=== PATIENT | female | born 2000 | race Caucasian/White ===

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

== ENCOUNTER → 2020-04-19 16:28 | Outpatient (CLI) | payer MEDICAID, SELFPAY ==
[2020-04-19 14:24] VITALS: BMI 28.1
[2020-04-19 17:06] LABS: Amphetamine Urine VISTA NEGATIVE (<1000 ng/mL); Barbiturate Urine VISTA NEGATIVE (< 200 ng/mL); Benzodiazepine Urine VISTA NEGATIVE (< 200 ng/mL); Cocaine Urine VISTA NEGATIVE (< 300 ng/mL); Ecstacy Urine VISTA NEGATIVE (< 500 ng/mL); Methadone Urine VISTA NEGATIVE (< 300 ng/mL); PCP Urine VISTA NEGATIVE (< 25 ng/mL); THC Urine VISTA NEGATIVE (< 50 ng/mL); Vista UDS pH Range 6
[2020-04-19 19:47] LABS: Chlamydia Trachomatis by PCR Negative (Negative); Neisserai gonorrhoeae by PCR Negative (Negative); Probe Check PASS; Sample Adequacy Control PASS; Specimen Processing Control PASS
== END ==
PROVIDERS: PCP Family Medicine; Referring Provider Obstetrics & Gynecology; Visit Provider Obstetrics & Gynecology
DX: Z34.90 Encounter for supervision of normal pregnancy, unspecified, unspecified trimester (principal)
CPT/HCPCS: 80307; 87086; 87088; 87491; 87591

== ENCOUNTER → 2020-04-21 11:47 | Outpatient (CLI) | payer MEDICAID, SELFPAY ==
[2020-04-19 14:24] VITALS: BMI 28.1
[2020-04-21 12:14] LABS: Absolute Lymphocyte Count 1.63 X10^3/uL (0.83-4.51); Absolute Neutrophil Count 4.2 X10^3/uL (2.0-7.7); Basophil# 0.03 X10^3/uL; Basophil% 0.4 % (0-1); Eosinophil# 0.41 X10^3/uL; Eosinophils% 6.1 % (0-5); Hematocrit 38.6 % (37-47); Hemoglobin 13.3 g/dL (12.0-15.0); Lymphocyte # 1.63 X10^3/ul (4.0); Lymphocyte % 24.1 % (19-41); Mean Corp Hgb Conc 34.5 g/dL (32-36); Mean Corpuscular Hgb 29.8 pg (27.0-32.0); Mean Corpuscular Volume 86.5 fL (81-99); Mean Platelet Vol. 9.7 fl (6.2-12.0); Monocyte# 0.47 X10^3/uL; NRBC Flagged by Analyzer 0 % (0-5); Neutrophil % 62.1 % (47-70); Platelet Count 252 K/mm3 (150-450); RBC Distribution Width CV 12.5 % (11.6-14.6); RBC Distribution Width SD 38.7 fl (35.1-43.9); Red Blood Count 4.46 M/mm3 (4.2-5.4); White Blood Count 6.8 K/mm3 (4.4-11.0)
[2020-04-21 13:02] LABS: NATERA MAILED SPECIMEN
[2020-04-21 13:11] LABS: HIV - WCH Non-Reactive (Nonreactive); Hepatitis B Surface Antigen Non-Reactive (Nonreactive); Hepatitis C Antibody Non-Reactive (Nonreactive); Rubella IgG 132.8 IU/mL
[2020-04-26 02:01] LABS: Rapid Plasmin Reagin (RPR) NONREACTIVE (NONREACTIVE)
== END ==
PROVIDERS: PCP Family Medicine; Referring Provider Obstetrics & Gynecology; Visit Provider Obstetrics & Gynecology
DX: Z34.90 Encounter for supervision of normal pregnancy, unspecified, unspecified trimester (principal)
CPT/HCPCS: 36415; 85025; 86592; 86703; 86762; 86803; 86850; 86900; 86901; 87340

== ENCOUNTER → 2020-06-11 | Outpatient (CLI) | payer MEDICAID, SELFPAY ==
[2020-06-11 14:17] VITALS: BMI 28.1
== END | disposition home or self-care (01) ==
LOC: LABSPEC 17:19
PROVIDERS: PCP Family Medicine; Referring Provider Obstetrics & Gynecology; Visit Provider Obstetrics & Gynecology
DX: R82.71 Bacteriuria (principal)
CPT/HCPCS: 87086; 87088

== ENCOUNTER → 2020-08-16 09:24 | Outpatient (CLI) | payer MEDICAID, SELFPAY ==
[2020-07-19 15:33] VITALS: BMI 29.4
[2020-08-16 10:54] LABS: Absolute Neutrophil Count 7.5 X10^3/uL (2.0-7.7); Basophil# 0.05 X10^3/uL; Basophil% 0.5 % (0-1); Eosinophil# 0.44 X10^3/uL; Eosinophils% 4.2 % (0-5); Hematocrit 36.6 % (37-47); Hemoglobin 11.9 g/dL (12.0-15.0); Lymphocyte % 16.3 % (19-41); Mean Corp Hgb Conc 32.5 g/dL (32-36); Mean Corpuscular Hgb 29.5 pg (27.0-32.0); Mean Corpuscular Volume 90.8 fL (81-99); Mean Platelet Vol. 10.2 fl (6.2-12.0); Monocyte# 0.73 X10^3/uL; NRBC Flagged by Analyzer 0 % (0-5); Neutrophil % 71.6 % (47-70); Platelet Count 271 K/mm3 (150-450); RBC Distribution Width CV 12.4 % (11.6-14.6); RBC Distribution Width SD 40.7 fl (35.1-43.9); Red Blood Count 4.03 M/mm3 (4.2-5.4); White Blood Count 10.5 K/mm3 (4.4-11.0)
[2020-08-16 11:30] LABS: Glucose Challenge Gest 1H 50g 100 mg/dL (70-140)
== END ==
PROVIDERS: PCP Family Medicine; Referring Provider Obstetrics & Gynecology; Visit Provider Obstetrics & Gynecology
DX: Z34.90 Encounter for supervision of normal pregnancy, unspecified, unspecified trimester (principal); Z13.1 Encounter for screening for diabetes mellitus
CPT/HCPCS: 36415; 82950; 85025

== ENCOUNTER → 2020-09-13 11:28 | Outpatient (CLI) | payer MEDICAID, SELFPAY ==
[2020-07-19 15:33] VITALS: BMI 29.4
[2020-08-30 10:41] VITALS: BMI 30.4
--- NOTE | 2020-09-13 11:29 | US_ITS ---
STUDY: SECOND AND THIRD TRIMESTER OBSTETRICAL ULTRASOUND REASON FOR EXAM: Female, 20 years old ANATOMY LMP: 02/11/2020. TECHNIQUE: Transabdominal TECHNICAL QUALITY: Adequate. PRIOR ULTRASOUND: None. FINDINGS: There is a single intrauterine fetus. The fetus is in a cephalic presentation. There is demonstrated cardiac activity with a heart rate of 168 bpm. There is a normal amniotic fluid volume. The largest amniotic fluid pocket measures 7.1 cm. The amniotic fluid index (SHUN) is 12.6 cm. The placenta is fundal and posterior. Not low-lying. There are Grade 0 placental changes. The cervix measures 3.1 cm in length. The adnexal regions are not visualized. BIOMETRY: BPD: 7.54 cm: 30 weeks, 1 days HC: 28.09 cm: 30 weeks, 5 days AC: 27.38 cm: 31 weeks, 3 days FL: 5.76 on: 30 weeks, 1 days CI: 77% FL/BPD: 76% FL/HC: FL/AC: 21% HC/AC: 1.03 age by current US: 30 weeks, 3 days. JETT by current US: 11/19/2020. Estimated weight: 1672 grams, +/- 251 grams, 46 %. Age by LMP: 30 weeks, 5 days. JETT by LMP: 11/17/2020. ANATOMY: Gender: Female Cranium: The lateral ventricles are non-visualized. The choroid plexus is non-visualized. Normal cerebellum. Normal cisterna magna. Normal face, nose and lips. Chest: Normal 4-chamber heart. Abdomen/Pelvis: Normal diaphragm. Normal stomach. Normal abdominal wall. Normal cord insertion. Normal 3 vessel cord. Normal kidneys. Normal bladder. Spine: Normal cervical spine. Normal thoracic spine. Normal lumbar spine. Normal sacrum. Extremities: Normal bilateral upper extremities. Normal bilateral lower extremities. US/OB Anatomy Scan IMPRESSION: Single live intrauterine gestation with a mean gestational age of 30 weeks and 3 days. Limited visualization of the lateral ventricles and choroid plexus. Electronically Signed: Suhas Quick, at 15:15 EST , Service support ,
== END ==
PROVIDERS: PCP Family Medicine; Referring Provider Obstetrics & Gynecology; Visit Provider Obstetrics & Gynecology
DX: Z34.90 Encounter for supervision of normal pregnancy, unspecified, unspecified trimester (principal)
CPT/HCPCS: 76805

== ENCOUNTER → 2020-10-22 | Outpatient (CLI) | payer MEDICAID, SELFPAY ==
[2020-10-22 09:16] VITALS: BMI 31.7
== END | disposition home or self-care (01) ==
LOC: LABSPEC 14:38
PROVIDERS: PCP Family Medicine; Referring Provider Obstetrics & Gynecology; Visit Provider Obstetrics & Gynecology
DX: Z34.90 Encounter for supervision of normal pregnancy, unspecified, unspecified trimester (principal)
CPT/HCPCS: 87081

== ENCOUNTER 2020-11-12 05:05 | Inpatient (IN) | payer MEDICAID, SELFPAY ==
[2020-07-19 15:33] VITALS: BMI 29.4
[2020-11-05 13:33] VITALS: BMI 32.1
[2020-11-12] VITALS (17 sets, daily range): BP systolic 101–123; BP diastolic 41–78; PULSE 58–96; RESP 15–20; TEMP 36.1–36.8; O2SAT 96–100; BMI 32.5
[2020-11-12] MEDS: Lactated Ringers 1,000 ML 999 ML IV (05:55)
[2020-11-12 06:07] LABS: Absolute Lymphocyte Count 2.14 X10^3/uL (0.83-4.51); Absolute Neutrophil Count 6.7 X10^3/uL (2.0-7.7); Basophil# 0.06 X10^3/uL; Basophil% 0.6 % (0-1); Eosinophil# 0.47 X10^3/uL; Eosinophils% 4.6 % (0-5); Hematocrit 35.1 % (37-47); Hemoglobin 11.3 g/dL (12.0-15.0); Lymphocyte # 2.14 X10^3/ul (4.0); Lymphocyte % 20.8 % (19-41); Mean Corp Hgb Conc 32.2 g/dL (32-36); Mean Corpuscular Hgb 25.5 pg (27.0-32.0); Mean Corpuscular Volume 79.2 fL (81-99); Mean Platelet Vol. 10.5 fl (6.2-12.0); Monocyte# 0.88 X10^3/uL; Monocyte% 8.6 % (0-10); NRBC Flagged by Analyzer 0 % (0-5); Neutrophil # 6.66 X10^3/uL (2.7-7.7); Neutrophil % 64.6 % (47-70); Platelet Count 251 K/mm3 (150-450); RBC Distribution Width CV 12.9 % (11.6-14.6); RBC Distribution Width SD 36.9 fl (35.1-43.9); Red Blood Count 4.43 M/mm3 (4.2-5.4); White Blood Count 10.3 K/mm3 (4.4-11.0)
[2020-11-12] MEDS: Acetaminophen 500 MG Tablet 1000 MG PO ×3 (06:48→18:38)
[2020-11-12] MEDS: Sodium Citrate/Citric Acid 30 ML UDC PO (06:48)
[2020-11-12] MEDS: Lactated Ringers 1,000 ML 150 ML IV (06:54)
[2020-11-12] MEDS: Cefazolin 2 GM in 0.9% Normal Saline 100 ML IV (07:27)
--- NOTE | 2020-11-12 07:31 | PCM.HPOB.BLA ---
- Problem List (1) 35 weeks gestation of Status: Acute Comment: Pt refused COVID test (2) Asymptomatic bacteriuria Status: Acute Comment: tx w/ Macrobid repeat urine culture neg (3) General counseling and advice for contraceptive management Status: Acute Comment: IUD 6 wk pp (4) History of delivery Status: Acute Comment: prev due to vasa previa. Discussed RCD vs TOLAC - wants repeat CS:GP 11/12/20; NL growth 09/13 (5) History of tetanus, diphtheria, and acellular pertussis booster vaccination (Tdap) Status: Acute Comment: 08/30/20 (6) Status: Acute Qualifiers: Comment: genetic low risk, carrier negative, and ntd screening declined. nl anatomy (7) Short interval between pregnancies affecting , antepartum Status: Acute Comment: 8 months (8) Supervision of normal Status: Acute Qualifiers: Comment: PRR JETT 11/17/20 [place]ee [place] ([place]) History and Physical Date of Admission: 11/12/20 Intake Vital Signs 11/05/20 Height 5 ft 3 in 11/05/20 Weight: 181 lb 8 oz 11/05/20 BP 136/78 H 08/16/20 BMI 30.3 Intake Visit Reasons: 38WK OB Mechanical Sound Technician Required: No Is patient in pain?: No Allergies azithromycin [From Zithromax] Allergy (Severe, Verified 11/05/20 13:33) Anaphylaxis Medications sertraline 50 mg tablet 50 mg PO DAILY #30 tab 09/13/20 [Rx Confirmed 11/05/20] Last Menstral Period: 02/11/20 Zika: Zika virus screening: Negative : No PFSH PFSH Surgical History delivery delivered (Acute) H/O adenoidectomy (Acute) History of placement of ear tubes (Acute) Family History Grandfather Leukemia Aunt Breast cancer Social History (Updated 11/05/20 @ 14:[address] Lissette Alves MD) household members: significant other, children number of children: 1 current occupational status: unemployed history of recent travel: No sexually active: Yes Smoking Status: Never smoker alcohol intake: never substance use type: does not use caffeine: Yes Type: carbonated beverages what type of physical activity do you participate in: none seatbelt use: always do you feel safe at home: Yes additional social history: Epifanio Santaan Pregancy History 1 Elective abortions Hx Para 1 Spontaneous abortions Hx # Term Pregnancies Ectopic pregnancies Hx # Pregnancies Multiple births # of living children Past Pregnancies Del. Date Name GA/Weeks Outcome Route Bth Weight Infant Gen Labor Lgth Anesthesia Del Locatn Provider FOB 06/18/19 Tomasa 34 live - 6lbs 3oz Male spinal [facility] Delivery Date: 06/18/19 vasa previa Zach,Meena HPI 38WK OB : Details: MEMO MASON is a 20 year old who presents for routine OB visit. OB Visit JETT Calculator Estimated Delivery Date Method Current WG Current Estimate 11/17/20 LMP (Certain) 38w 2d Other Estimates 11/16/20 Ultrasound #1 38w 3d Expected Delivery Route/Plan RCS with GP patient counseled regarding risks/benefits of trial of labor versus repeat . ACOG/uptodate education given to patient. 79 % likelihood of success per calculator Labor Preferences- CB/BF classes: no labor support person: Max labor intervention preferences: c section : yes PP control planned: IUD Specific Issue/Plans flu vaccine: given tdap vaccine: given rhogam: na LARC form signed: yes movement and labor precautions reviewed. Problem list reviewed and updated with the most current plan of care details and appropriate orders placed. Relevant counseling for the gestational age provided. Continue routine care and follow up unless otherwise noted in visit notes/problem list details Initial Weight: 159 lb Date EGA Weight BP Urine Prot Glucose FHR FuHt Pres Dilation Effaced St Visit Note 04/19/20 9w 5d 159 lb (+0 oz) 128/72 165 SM- CRL- SM- CRL- 2.9cm cons with lmp 05/18/20 13w 6d 157 lb (-2 lb) 112/60 Negative Negative 150 GP - denies cramping/LOF/VB. Interested in tubal - discussed unable to do under age 21yo 06/11/20 17w 2d 158 lb 2 oz (-14 oz) 134/64 Negative Negative 150 GP - no LOF, VB, cramping. Discussed route of del - interested in RCD. 07/19/20 22w 5d 166 lb (+7 lb) 122/64 Negative Negative 150 SM- no vb lof good fm nor egular ctx 08/16/20 26w 5d 171 lb 4 oz (+12 lb 4 oz) 120/74 Trace Negative 153 MH-NO VB, LOF. Good fm. 28 wk labs. Does not want TOLAC 08/30/20 28w 5d 172 lb 2 oz (+13 lb 2 oz) 120/70 Trace Negative 148 28 MH-No VB, LOF. Good FM. Nl 28 wk labs. Tdap 09/13/20 30w 5d 177 lb 6 oz (+18 lb 6 oz) 128/60 Negative Negative 145 30 GP - no LOF, VB, DFM, ctx. RCS scheduled for 11/12. 09/24/20 32w 2d 177 lb (+18 lb) 130/70 Negative Negative 150 32 GP - no LOF, VB, DFM, ctx. Discussed COVID testing - patient declines testing. GP - no LOF, VB, DFM, ctx. Discussed routine COVID testing - patient declines testing. 10/08/20 34w 2d 177 lb (+18 lb) 126/88 Negative Negative 145 34 SM- no vb lof good fm no regular ctx 10/22/20 36w 2d 179 lb 2 oz (+20 lb 2 oz) 130/70 Negative Negative 150 36 Cephalic 0 40 -2 GP - no LOF, VB, DFM, ctx. GBS done today. 10/29/20 37w 2d 180 lb 4 oz (+21 lb 4 oz) 138/78 Trace Negative 130 37 GP - no LOF, VB, DFM, ctx. Denies complaints. 11/05/20 38w 2d 181 lb 8 oz (+22 lb 8 oz) 136/78 Negative Negative 155 38 GP - no LOF, VB, DFM, ctx. RCD 11/12. Aware needs to arrive 2 hours before. ACOG First Trimester First Trimester: Discussed Second Trimester Second Trimester: Signs and Symptoms of Labor, Selecting a care provider, Reproductive Life Planning, Care Planning, Depression/Anxiety and Intimate Partner Violence; discussed Tobacco Cessation Diagnostics Diagnostics Diagnostics Glucose 1 Hr 50 gm 100 mg/dL (70-140) 08/16/20 Hgb 11.9 g/dL (12.0-15.0) L 08/16/20 Hct 36.6 % (37-47) L 08/16/20 Details: HIV: Urine Culture: Sequential Screen: NIPT Screen: ROS Const Reports system reviewed and no additional complaints, except as docu Eyes Reports system reviewed and no additional complaints, except as docu ENT Reports system reviewed and no additional complaints, except as docu Card Reports system reviewed and no additional complaints, except as docu Resp Reports system reviewed and no additional complaints, except as docu GI Reports system reviewed and no additional complaints, except as docu Reports system reviewed and no additional complaints, except as docu, Denies abnormal vaginal bleeding, Denies painful urination, Denies pelvic pain, Denies vaginal discharge, Denies vaginal odor, Denies vaginal itching Musc Reports system reviewed and no additional complaints, except as docu Skin/Breast Reports system reviewed and no additional complaints, except as docu Neuro Yes system reviewed and no additional complaints, except as docu Psych Reports system reviewed and no additional complaints, except as docu Endo Reports system reviewed and no additional complaints, except as docu Exam Const General: cooperative, healthy appearing, comfortable, no acute distress, well developed, well groomed Nutritional Appearance: average body habitus, well nourished Orientation: alert, awake, oriented x3 HENLA Head: normal to inspection, normocephalic, atraumatic Eyes Pupils: PERRL, accommodation normal Resp Effort & Inspection: normal respiratory effort, able to speak in complete sentences, symmetric chest movement Cardio Rate: regular rate GI Palpation: soft, no guarding, no masses, nontender Skin General: no rashes or lesions noted, elasticity normal, turgor normal Neuro General: alert, awake, oriented x3 Cranial Nerves: CN's II-XI intact bilaterally, sense of smell intact, PERRL, accommodation normal, EOM intact bilaterally Speech: speech normal Gait: normal gait Psych Appearance: grossly normal, well kempt Mental Status: mental status grossly normal Mood: congruent mood Affect: normal affect Speech and Movement: speech and movement normal Attitude: cooperative Thought Process: normal Thought Content: normal Judgment: judgment good Results POC Urinalysis 2 Dip (Clinic) Office Urine Glucose Negative Last Edit by Meena Serrano on 11/05/20 13:39 Office Urine Protein Negative Last Edit by Meena Serrano on 11/05/20 13:39 Assessment & Plan Problems 1. 35 weeks gestation of Z3A.35 Pt refused COVID test 2. History of tetanus, diphtheria, and acellular pertussis booster vaccination (Tdap) Z92.29 08/30/20 3. General counseling and advice for contraceptive management Z30.09 IUD 6 wk pp 4. Asymptomatic bacteriuria R82.71 tx w/ Macrobid repeat urine culture neg 5. Short interval between pregnancies affecting , antepartum O09.899 8 months 6. History of delivery Z98.891 prev due to vasa previa. Discussed RCD vs TOLAC - wants repeat CS:GP 11/12/20; NL growth 09/13 7. 38 weeks gestation of Z3A.38 genetic low risk, carrier 14/14 negative, and ntd screening declined. nl anatomy 8. Encounter for supervision of other normal in third trimester Z34.83 PRR JETT 11/17/20 [place]ee [place] ([place]) UPDATE- I have seen the patient and performed any clinically relevant updates to the history and physical exam. Lissette Alves MD
[2020-11-12] MEDS: Oxytocin 30 units/NS 500 ml 30 UNITS/500 ML IV.SOLN 167 UNITS IV (08:30)
--- NOTE | 2020-11-12 08:40 | OP.PCM_ITS ---
Problem List (1) 35 weeks gestation of Status: Acute Comment: Pt refused COVID test (2) Asymptomatic bacteriuria Status: Acute Comment: tx w/ Macrobid repeat urine culture neg (3) General counseling and advice for contraceptive management Status: Acute Comment: IUD 6 wk pp (4) History of delivery Status: Acute Comment: prev due to vasa previa. Discussed RCD vs TOLAC - wants repeat CS:GP 11/12/20; NL growth 09/13 (5) History of tetanus, diphtheria, and acellular pertussis booster vaccination (Tdap) Status: Acute Comment: 08/30/20 (6) Status: Acute Qualifiers: Comment: genetic low risk, carrier 14/14 negative, and ntd screening declined. 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 Indications for : Repeat Elective Description of Procedure: The patient is a 20 year old at 39 weeks who presented for repeat C- section. Spinal anesthesia was placed without difficulty. Fernandez catheter was placed. The patient was placed in the dorsal supine position with leftward tilt. Patient was prepped and draped in the normal sterile fashion. Pfannenstiel skin incision was made with the scalpel and carried through to the underlying layer of fascia with the scalpel. Fascia was nicked in the midline and the incision extended laterally. The rectus bellies were dissected off superiorly and inferiorly with out complication both sharply and bluntly. The peritoneum was entered digitally. The incision was stretched and a low transverse uterine incision was made with the scalpel. The infant's head was delivered atraumatically followed by the anterior and posterior shoulders without complication the rest of the infant delivered. The cord was clamped and cut and the infant was handed off to awaiting nurse. The placenta was delivered spontaneously immediately following and was noted to be intact and have a three-vessel cord. The uterus was exteriorized cleared of all clots and debris, and the incision was closed in a double layer closure using #1 Monocryl. The ovaries and fallopian tubes were noted to be within normal limits. The uterus was returned to the maternal abdomen and gutters were cleared of all clots and debris. The peritoneum was closed with 3-0 Monocryl in a running fashion. Gloves were changed prior to fascial closure. Fascia was closed with 0 PDS in a running fashion. Subcutaneous tissue was copiously irrigated and the skin was closed with 3-0 Monocryl in a subcuticular fashion. Mepilex dressing was applied without complication. Patient was taken to recovery in stable condition. Amniotic Membrane Rupture Type: Artificial Amniotic Fluid Description: Clear Placenta Disposition: [facility] Drain: Fernandez to straight drain Fluids Replaced: 1000 Cord Entanglement: None Cord Vessel Description: 3 Vessels Esitmated Blood Loss (ml): 500 Infant Gender: Female (1 minute): 9 (5 minute): 10 Delayed cord clamping: Yes Antibiotic Given: Ancef 2 grams IV x1 Pt instructed on risks of surgery: Bleeding, Anesthesia Risks, Infection Complications: None - Admit VTE Documentation VTE Present on Admission: No VTE Mechan Device Prophylaxis: SCD's VTE Pharm Prophylaxis ordered?: No Multi Select Codes - Urinary/Genital Urinary/Genital CPT Codes: 12069 delivery+ Care([facility])
--- NOTE | 2020-11-12 08:45 | DCINST_ITS ---
Discharge Diet: No Restrictions Discharge Activity: May Not Drive - for 2 weeks or while taking narcotic pain meds., May Shower, May Take a Tub Bath - in 7 days. May resume sexual activity in: 4-6 weeks Lifting Restrictions: 20 pounds Additional Activity Instructions:: Nothing in the vagina for 4-6 weeks. You may return to work/school in 6 weeks. Call your doctor if your incision/area has: Continuous Slow Oozing, Sudden Increased Bleeding, Increased Pain/ Swelling, Increased Redness, Foul Smelling Discharge Call your doctor if you observe: Fever of 101 or Higher Suture Line Care: Avoid Pulling/Pushing, Avoid Pinching/Bending Additional Instructions: If you experience any of the following, contact your healthcare provider. * Bleeding that soaks a pad every hour for 2 hours * Fever 100.4 or higher * Unrelieved incision or abdominal pain * Swelling, redness, discharge or bleeding from your incision or episiotomy site * Your incision begins to separate * Problems urinating (including inability to urinate or burning while urinating). * Visual changes * Severe headache * Flu-like symptoms * Pain or redness in one of both of your breasts * Pain, warmth, tenderness or swelling in your legs, especially the calf area * Frequent nausea and vomiting * Symptoms of depression or anxiety If you experience any of the following, call 911 or go to the nearest Emergency Room. * Chest pain * Problems breathing * Seizure activity * Partial or complete paralysis of a body part, slurred speech, weakness or drooping of the face, or a sudden inability to walk or hold your balance Allergies/Adverse Reactions: Allergies azithromycin [From Zithromax] Allergy (Severe, Verified 11/12/20 05:29) Anaphylaxis Follow-Up: Call to make an appointment with your doctor for an incision check in 1-2 weeks. You will also need a 6 week post- follow up appointment. Test results from this visit will be discussed in further detail at your follow- up appointment, if applicable. Primary Care Physician: Charly Roberson MD [Primary Care Provider] -
[2020-11-12] MEDS: Lactated Ringers 1,000 ML 100 ML IV (11:46)
[2020-11-12] MEDS: Senna/Docusate Sodium 1 Tablet PO (12:38)
[2020-11-12] MEDS: Ketorolac 30 MG/ML Syringe IV ×2 (14:17→20:05)
[2020-11-12] MEDS: 0.9% Saline Lock 10 ML Syringe IV ×3 (14:19→20:05)
[2020-11-13] MEDS: Acetaminophen 500 MG Tablet 1000 MG PO ×2 (01:35→06:54)
[2020-11-13] MEDS: Ketorolac 30 MG/ML Syringe IV ×2 (01:36→08:33)
[2020-11-13] MEDS: 0.9% Saline Lock 10 ML Syringe IV ×2 (01:36→08:35)
[2020-11-13 03:21] VITALS: BP 99/57; PULSE 73; RESP 16; TEMP 36.6
[2020-11-13 05:40] LABS: Hemoglobin 10.4 g/dL (12.0-15.0); Mean Corp Hgb Conc 31.5 g/dL (32-36); Mean Corpuscular Hgb 25.7 pg (27.0-32.0); Mean Corpuscular Volume 81.5 fL (81-99); Mean Platelet Vol. 10.1 fl (6.2-12.0); Platelet Count 197 K/mm3 (150-450); RBC Distribution Width SD 38.3 fl (35.1-43.9); Red Blood Count 4.05 M/mm3 (4.2-5.4); White Blood Count 10.8 K/mm3 (4.4-11.0)
[2020-11-13 08:30] VITALS: BP 111/67; PULSE 85; RESP 16; TEMP 36.4
--- NOTE | 2020-11-13 09:27 | PCM.PN.OB ---
Patient Problems: Active and Suspected Problems (Last Reviewed 11/05/20 @ 13:33 by Meena Serrano) History of tetanus, diphtheria, and acellular pertussis booster vaccination (Tdap) (Acute) 08/30/20 General counseling and advice for contraceptive management (Acute) IUD 6 wk pp Subjective: .Patient doing well without complaints. Tolerating PO. Ambulating and voiding without difficulty. well. Denies chest pain, shortness of breath, calf pain/swelling, fevers, chills, lightheadedness. - Physical Exam Vitals/I&O's: Vital Signs Temp Pulse Resp BP Pulse Ox 97.9 F 73 16 99/57 L 100 11/13/20 03:21 11/13/20 03:21 11/13/20 03:11/13/20 03:11/12/20 18:47 Oxygen Delivery Method Room Air Weight: 183 lb 6.4 oz Body Mass Index (BMI) 32.5 Intake and Output for Last 24 Hours 11/11/20 11/12/20 11/13/20 23:59 23:59 23:59 Intake Total 2832.35 / 2832.35 Output Total 1200 / 1200 Balance 1632.35 / 1632.35 General: Alert, Oriented x3 Abdomen: Soft, Non-Distended, - - Dressing dry and intact. FF below U Laboratory Results 11/13/20 05:33: WBC 10.8, RBC 4.05 L, Hgb 10.4 L, Hct 33.0 L, MCV 81.5, MCH 25.7 L, MCHC 31.5 L, RDW Std Deviation 38.3, RDW Coeff of Jonathan 13.0, Plt Count 197, MPV 10.1 Current Medications Acetaminophen (Acetaminophen 500 Mg Tablet) 1,000 mg PO Q6H IVC Last Admin: 11/13/20 06:54 Dose: 1,000 mg Documented by: Bisacodyl (Bisacodyl 10 Mg Suppository) 10 mg RECTAL UD PRN PRN Reason: If no BM Hydrocortisone (Hydrocortisone 2.5% Crm) 1 applic TOPICAL TID PRN PRN; Protocol PRN Reason: Discomfort Methylergonovine Maleate (Methylergonovine 0.2 Mg/Ml Ampul) 0.2 mg IM X1 PRN PRN Reason: Uterine Atony Naproxen (Naproxen 250 Mg Tablet) 500 mg PO Q8H VIC Ondansetron HCl (Ondansetron 4 Mg/2 Ml Vial) 4 mg IV Q4H PRN PRN PRN Reason: Nausea Oxycodone HCl (Oxycodone 5 Mg Tablet) 5 - 10 mg PO Q4H PRN PRN PRN Reason: Pain Score 4-10 Prochlorperazine Edisylate (Prochlorperazine 10 Mg/2 Ml Vial) 10 mg IV Q6H PRN PRN PRN Reason: NAUSEA Senna/Docusate Sodium (Senna/Docusate Sodium 1 Tablet) 1 - 2 tablet PO DAILY VIC Last Admin: 11/12/20 12:38 Dose: 2 tablet Documented by: Simethicone (Simethicone 80 Mg Tablet) 80 mg PO PCHS PRN PRN Reason: Indigestion/stomach pain Sodium Chloride (0.9% Saline Lock 10 Ml Syringe) 5 - 15 ml IV UD PRN PRN Reason: SALINE FLUSH Last Admin: 11/13/20 08:35 Dose: 10 ml Documented by: Medical Necessity - Tobacco Use Smoking Status: Never smoker Assessment/Plan All Active Problems (Last Reviewed 11/05/20 @ 13:33 by Meena Serrano) History of tetanus, diphtheria, and acellular pertussis booster vaccination (Tdap) (Acute) General counseling and advice for contraceptive management (Acute) 35 weeks gestation of (Resolved) Asymptomatic bacteriuria (Resolved) History of delivery (Resolved) (Resolved) Short interval between pregnancies affecting , antepartum (Resolved) Supervision of normal (Resolved) IUD (intrauterine device) in place (Resolved) Low lying placenta nos or without hemorrhage, second trimester (Resolved) Maternal varicella, non-immune (Resolved) (Resolved) Supervision of normal first (Resolved) Vasa previa (Resolved) s/p LTCS PPD # 1 1. routine post care 2. breast feeding- support given 3. rh positive 4. rubella immune 5. home today
== END 2020-11-13 11:00 | disposition home or self-care (01) | DRG 540 ==
PROVIDERS: Admitting Provider Obstetrics & Gynecology; PCP Family Medicine; Referring Provider Obstetrics & Gynecology; Visit Provider Obstetrics & Gynecology
PROC: 10D00Z1 Extraction of Products of Conception, Low, Open Approach (ICD-10-PCS; CPT 59514; principal; 2020-11-12 07:15)
DX: O34.219 Maternal care for unspecified type scar from previous cesarean delivery (principal); Z3A.39 39 weeks gestation of pregnancy; Z37.0 Single live birth
CPT/HCPCS: 85025; 85027; 86850; 86900; 86901; 99218; 99251; J7120; A4216; G0378; G0463

== ENCOUNTER → 2021-07-29 07:13 | Outpatient (CLI) | payer MEDICAID, SELFPAY ==
[2021-07-29 08:18] LABS: Absolute Neutrophil Count 3.2 X10^3/uL (2.0-7.7); Basophil# 0.05 X10^3/uL; Basophil% 0.6 % (0-1); Eosinophils% 28.6 % (0-5); Hemoglobin 14.4 g/dL (12.0-15.0); Lymphocyte % 25.6 % (19-41); Mean Corp Hgb Conc 32.7 g/dL (32-36); Mean Corpuscular Hgb 28.2 pg (27.0-32.0); Mean Corpuscular Volume 86.3 fL (81-99); Mean Platelet Vol. 9.4 fl (6.2-12.0); Monocyte# 0.62 X10^3/uL; Monocyte% 7.2 % (0-10); NRBC Flagged by Analyzer 0 % (0-5); Neutrophil # 3.24 X10^3/uL (2.7-7.7); Neutrophil % 37.8 % (47-70); POSITIVE DIFFERENTIAL YES; Platelet Count 339 K/mm3 (150-450); RBC Distribution Width CV 13.2 % (11.6-14.6); RBC Distribution Width SD 41.2 fl (35.1-43.9); White Blood Count 8.6 K/mm3 (4.4-11.0)
[2021-07-29 08:40] LABS: Differential Indicated SCAN CRITERIA MET; Eosinophil# 2.46 X10^3/uL
[2021-07-29 09:03] LABS: Platelet Estimate ADEQUATE (ADEQ); Red Cell Morphology NORM C+C NORMAL (NORM C&C)
--- NOTE | 2021-07-31 14:15 | PFT ---
INTRODUCTION: The patient is a 20-year-old female that presents for pulmonary function studies secondary to a diagnosis of asthma. Respiratory therapy reported good patient effort. Bronchodilators were used during testing. INTERPRETATION: Forced expiration spirometry demonstrates no evidence of a large airways obstructive ventilatory defect. There was a significant response to aerosolized bronchodilators. Spirograms are of good quality and plateau normally. Body plethysmography was performed and reveals lung volumes to be within normal limits. Diffusing capacity by single breath CO was also within normal limits. IMPRESSION: Stigmata of small airways disease with significant bronchodilator response, consistent with a diagnosis of asthma.
[2021-08-01 02:07] LABS: Ash, White 0.36 kU/L (Class I); Aspergillus fumigatus 1.47 kU/L (Class III); Bermuda Grass 0.14 kU/L (Class 0/I); Birch 0.14 kU/L (Class 0/I); Black Walnut 0.54 kU/L (Class I); Cat Hair / Dander,Stand <0.10 kU/L (Class 0); Cedar, Mountain 0.24 kU/L (Class 0/I); Cladosporium herbarum 0.71 kU/L (Class II); Cockroach, American 0.32 kU/L (Class I); Cottonwood 0.56 kU/L (Class II); D farinae Mite <0.10 kU/L (Class 0); D pteronyssinus 0.11 kU/L (Class 0/I); Dog Epithelia <0.10 kU/L (Class 0); Elm, American White 0.24 kU/L (Class 0/I); Immunoglobulin E 217 IU/mL (6-495); Maple/Box Elder 0.51 kU/L (Class I); Mulberry, White 0.12 kU/L (Class 0/I); Oak, White 0.26 kU/L (Class 0/I); Pecan 0.18 kU/L (Class 0/I); Penicillium Notatum 0.26 kU/L (Class 0/I); Pigweed, Rough 0.16 kU/L (Class 0/I); Ragweed, Short/Common 0.36 kU/L (Class I); Russian Thistle 0.35 kU/L (Class I); Sheep Sorrel 0.28 kU/L (Class 0/I); Sycamore, American 0.42 kU/L (Class I); Timothy Grass 0.25 kU/L (Class 0/I)
[2021-08-01 15:50] LABS: Mouse Urine <0.10 kU/L (Class 0)
[2021-08-01 18:07] LABS: Aspirgillus flavus Negative (Neg:<1:1); Aspirgillus fumigatus Negative (Neg:<1:1); Aspirgillus niger Negative (Neg:<1:1); Cytoplasmic Ab (C-ANCA) <1:20 titer (Neg:<1:20)
[2021-08-02 08:28] LABS: Immunoglobulin E 254 IU/mL (6-495); Perinuclear Ab (P-ANCA) <1:20 titer (Neg:<1:20)
== END ==
PROVIDERS: PCP Family Medicine; Referring Provider Internal Medicine Critical Care Medicine; Visit Provider Internal Medicine Critical Care Medicine
DX: J45.909 Unspecified asthma, uncomplicated (principal)
CPT/HCPCS: 36415; 82785; 85025; 86003; 86256; 86606; 94060; 94726; 94729